=== PATIENT | male | born 1985 | race Caucasian/White ===

== ENCOUNTER 2016-09-14 18:39 | Emergency (ER) | payer SELFPAY ==
[2016-09-14 18:51] VITALS: BP 129/94
--- NOTE | 2016-09-14 19:12 | ER Document Report ---
HPI - HPI Patient complains to provider of: facial pressure had to leave work Onset: Other Onset/Duration: Sudden, Intermittent - Day Pain Level: 2 Context: 31-year-old normally healthy smoker male complaining of symptoms of facial pressure and jaw pain, that causes blurred vision. Occurred while he was driving to [place]. It then recurred after he left the emergency room in [place] for a scratch on his right hand that was treated with Keflex. He went back to the emergency room waited 4-1/2 hours and left because he was not seen. 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 He is wondering if the symptoms is because of the decayed top third molar on the right. No fever or facial swelling. No sinus congestion or postnasal drip. No recent upper respiratory infection. No sore throat or cough. No abdominal pain no nausea vomiting or diarrhea. No rash. Associated Symptoms: None Exacerbated by: Denies Relieved by: Denies Similar symptoms previously: Yes Recently seen / treated by doctor: No - ROS ROS below otherwise negative: Yes Systems Reviewed and Negative: Yes All other systems reviewed and negative - DERM Skin Color: Normal Past Medical History - General Information source: Patient - Social History Smoking Status: Current Every Day Smoker Frequency of alcohol use: None Drug Abuse: None Lives with: Family Family History: Reviewed & Not Pertinent - Medical History Medical History: Negative Renal/ Medical History: Denies: Hx Peritoneal Dialysis Surgical Hx: Negative Vertical Provider Document - CONSTITUTIONAL Agree With Documented VS: Yes Exam Limitations: No Limitations - INFECTION CONTROL TRAVEL OUTSIDE OF THE [place] IN LAST 30 DAYS: No - HEENT HEENT: Normocephalic, PERRLA. negative: Conjuctival Injection, Pharyngeal Erythema, Tympanic Membrane Red Notes: decayed without abscess top right 3rd molar. - NECK Neck: Supple. negative: Lymphadenopathy-Left, Lymphadenopathy-Right - RESPIRATORY Respiratory: Breath Sounds Normal, No Respiratory Distress O2 Sat by Pulse Oximetry: 96 - CARDIOVASCULAR Cardiovascular: Regular Rate, Regular Rhythm - GI/ABDOMEN Gastrointestinal: Abdomen Soft, Abdomen Non-Tender, No Organomegaly - MUSCULOSKELETAL/EXTREMETIES Musculoskeletal/Extremeties: CARMEN, FROM - NEURO Level of Consciousness: Awake, Alert, Appropriate Motor/Sensory: No Motor Deficit, No Sensory Deficit - DERM Integumentary: Warm, Dry, No Rash Course - Re-evaluation Re-evalutation: 09/14/16 19:32 20/20 right, 20 left - Vital Signs Vital signs: Temp Pulse Resp BP Pulse Ox 98.8 F 99 20 129/94 H 96 09/14/16 18:50 09/14/16 18:50 09/14/16 18:50 09/14/16 18:50 09/14/16 18:50 Discharge - Discharge Clinical Impression: Toothache, TMJ arthropathy Condition: Good Disposition: HOME, SELF-CARE Instructions: Toothache ([facility]), Dentist, Warm Packs ([facility]), Acetaminophen, Use of [id number] Ibuprofen ([facility]) Additional Instructions: warm compress see the dentist finish the pencillin to er if worse Please complete the patient satisfaction survey if you get one, and return it.. If you do not receive a survey, then you can go to the [facility] website, [email or web address] and place your comments about your very good care. Thank you very much. It was a pleasure being your medical provider today. Prescriptions: Ibuprofen [Motrin 800 mg Tablet] 800 mg PO Q8HP PRN #30 tablet PRN Reason: Penicillin V Potassium [Penicillin Vk 500 mg Tablet] 500 mg PO QID #40 tablet Forms: Return to Work
== END 2016-09-14 19:57 | disposition home or self-care (01) ==
LOC: ER 18:39
DX: M26.609 Unspecified temporomandibular joint disorder, unspecified side (principal); K08.89 Other specified disorders of teeth and supporting structures; R51 Headache; R68.84 Jaw pain; H53.8 Other visual disturbances; F17.200 Nicotine dependence, unspecified, uncomplicated
CPT/HCPCS: 99282

== ENCOUNTER 2016-11-27 18:47 | Emergency (ER) | payer SELFPAY ==
--- NOTE | 2016-11-27 20:15 | ER Document Report ---
ED Extremity Problem, Upper - General Chief Complaint: Arm Pain Stated Complaint: ARM PAIN Time Seen by Provider: 11/27/16 19:45 Notes: 31 year-old male to the emergency department complaining of muscle pains in the upper extremities. States that he started a new job over the last couple weeks. 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 Complaining of pain mostly in the right elbow, right biceps as well as right wrist and thumb area. Some pain in the muscles of the left arm as well. No other issues at this time. Denies any dark-colored urine. No prior history of rhabdomyolysis. Not on any medications. Not allergic to anything. Has not taken anything for the pain. TRAVEL OUTSIDE OF THE [place] IN LAST 30 DAYS: No - Related Data Allergies/Adverse Reactions: bupropion [From Wellbutrin] Adverse Reaction (Verified 09/14/16 18:49) Past Medical History - General Information source: Patient - Social History Smoking Status: Current Every Day Smoker Family History: Reviewed & Not Pertinent Renal/ Medical History: Denies: Hx Peritoneal Dialysis Past Surgical History: Reports: Hx Orthopedic Surgery - partial laminectomy spine with fusion Review of Systems - Review of Systems Constitutional: No symptoms reported EENT: No symptoms reported Cardiovascular: No symptoms reported Respiratory: No symptoms reported Gastrointestinal: No symptoms reported Genitourinary: No symptoms reported Male Genitourinary: No symptoms reported Musculoskeletal: No symptoms reported, See HPI Skin: No symptoms reported Hematologic/Lymphatic: No symptoms reported Neurological/Psychological: No symptoms reported. denies: Loss of power, Paralysis, Tingling Physical Exam - Vital signs Vitals: Temp Pulse Resp BP Pulse Ox 98.8 F 92 16 144/73 H 96 11/27/16 18:52 11/27/16 18:52 11/27/16 18:52 11/27/16 18:52 11/27/16 18:52 Interpretation: Normal - General General appearance: Appears well, Alert - HEENT Head: Normocephalic, Atraumatic Eyes: Normal Pupils: PERRL - Respiratory Respiratory status: No respiratory distress Chest status: Nontender Breath sounds: Normal Chest palpation: Normal - Cardiovascular Rhythm: Regular Heart sounds: Normal auscultation Murmur: No - Abdominal Inspection: Normal Distension: No distension Bowel sounds: Normal Tenderness: Nontender Organomegaly: No organomegaly - Back Back: Normal, Nontender - Extremities General upper extremity: Normal inspection, Nontender, Normal color, Normal ROM , Normal temperature General lower extremity: Normal inspection, Nontender, Normal color, Normal ROM , Normal temperature, Normal weight bearing. No: Jose's sign Arm: Other - Tenderness to palpation at the epicondyle of the right elbow. Tenderness to palpation of the right biceps. Tenderness to palpation of the left left biceps. Tenderness to palpation of the thenar eminence of the right hand. Forearm: Tender - Lateral epicondyle Wrist: Normal Hand: Normal - Neurological Neuro grossly intact: Yes Cognition: Normal Orientation: AAOx4 [place] Coma Scale Eye Opening: Spontaneous [place] Coma Scale Verbal: Oriented Gracie Coma Scale Motor: Obeys Commands Gracie Coma Scale Total: 15 Speech: Normal Motor strength normal: LUE, RUE, LLE, RLE Sensory: Normal - Psychological Associated symptoms: Normal affect, Normal mood - Skin Skin Temperature: Warm Skin Moisture: Dry Skin Color: Normal Course - Re-evaluation Re-evalutation: 11/27/16 20:13 Well-appearing. No acute distress. 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 Will need to ice the elbow and the muscles. To keep a close eye on his urine output and color of urine to assure that he is not developing rhabdomyolysis. Advised him to take anti-inflammatories, ice the area, rest the muscles and return if symptoms get worse. - Vital Signs Vital signs: Temp Pulse Resp BP Pulse Ox 98.8 F 92 16 144/73 H 96 11/27/16 18:52 11/27/16 18:52 11/27/16 18:52 11/27/16 18:52 11/27/16 18:52 Discharge - Discharge Clinical Impression: Myalgia Lateral epicondylitis (tennis elbow) Qualifiers: Laterality: right Qualified Code(s): M77.11 - Lateral epicondylitis, right elbow Condition: Good Disposition: HOME, SELF-CARE Additional Instructions: Muscle Strain It is very important that you limit excess activity at this time. Ice the areas that hurt. Rest. Anti-inflammatory medication if needed. No heavy lifting or high impact activity of the upper extremities for a minimum of 3 days You have strained a muscle -- torn the fibers within the muscle. This often occurs with strenuous exertion, or during an injury that suddenly stretches the muscle. The seriousness of a strain varies. Some strains heal within days, others cause problems for months. X-rays cannot show a muscle strain. X-rays are taken only if symptoms suggest that a fracture could be present. The usual treatment of a muscle strain is rest and ice packs. Sometimes, a sling, splint, or crutches may be necessary to rest the muscle. The muscle can be used again once pain subsides. Severe strains require a special exercise and stretching program to prevent permanent stiffness and disability. Your doctor will advise you if this will be necessary. Call the doctor immediately if pain or swelling becomes severe, or if numbness or discoloration develop.Tennis Elbow (Lateral Epicondylitis) You have lateral epicondylitis of the elbow, also called tennis elbow. This is a tendonitis at the point where the top-side forearm muscles attach to the outer side of the elbow. This is caused by repeated minor trauma or overuse , often during racquet sports or repetitive manual labor. In tennis, a faulty backhand stroke is usually the cause. Treat the tendonitis with antiinflammatory pain medication such as ibuprofen. Apply warmth to the area for 15 to 20 minutes, about 4 times a day. A wrap or "tennis elbow brace" that compresses the area may help. Steroid injections or surgery are occasionally required for severe cases that don't heal. Avoid or limit any activity that aggravates the pain. Stop racquet sports and golf for 4 to 6 weeks. Tennis players should make sure that they have a proper backhand after the injury heals. Return if you develop worsening pain, loss of mobility in the elbow, severe swelling, or numbness or weakness in the arm. Prescriptions: Ibuprofen 800 mg PO TID #20 tablet Forms: Return to Work, Restricted Release
[2016-11-27 20:31] VITALS: BP 136/75
== END 2016-11-27 20:30 | disposition home or self-care (01) ==
LOC: ER 18:47
DX: M77.11 Lateral epicondylitis, right elbow (principal); M79.1 Myalgia; M25.521 Pain in right elbow; M25.531 Pain in right wrist; F17.200 Nicotine dependence, unspecified, uncomplicated
CPT/HCPCS: 99283

== ENCOUNTER 2017-03-27 01:44 | Emergency (ER) | payer SELFPAY ==
[2017-03-27] MEDS ORDERED: PROCHLORPERAZINE EDISYLATE INJ 10 MG/2 ML VIAL IM ONE (08:07)
[2017-03-27] MEDS ORDERED: KETOROLAC TROMETHAMINE 60 MG/2 ML SDV IM ONE (08:07)
[2017-03-27] MEDS ORDERED: ONDANSETRON 4 MG TAB.RAPDIS PO ONE (08:07)
--- NOTE | 2017-03-27 08:09 | ER Document Report ---
ED General - General Chief Complaint: Flu Symptoms Stated Complaint: BODY ACHES Time Seen by Provider: 03/27/17 07:26 TRAVEL OUTSIDE OF THE [place] IN LAST 30 DAYS: No - HPI Patient complains to provider of: Fever chills muscle aches flulike symptoms Notes: Patient coming in for the above-stated symptoms that started on Friday. Patient states pain and muscle aches became severe is therefore came to the ER for further evaluation. Patient denies any recent travel denies any antibiotics. Patient denies smoking denies any alcohol or drug abuse. Patient sitting comfortably from me turn the lights on but she never said stating that he does have a headache. - Related Data Allergies/Adverse Reactions: bupropion [From Wellbutrin] Adverse Reaction (Verified 09/14/16 18:49) Past Medical History - Social History Smoking Status: Current Every Day Smoker Chew tobacco use (# tins/day): No Frequency of alcohol use: Occasional Drug Abuse: None Family History: Reviewed & Not Pertinent Patient has suicidal ideation: No Patient has homicidal ideation: No Renal/ Medical History: Denies: Hx Peritoneal Dialysis Past Surgical History: Reports: Hx Orthopedic Surgery - partial laminectomy spine with fusion Review of Systems - Review of Systems Constitutional: Other - Fevers chills myalgias headache EENT: No symptoms reported Cardiovascular: No symptoms reported Respiratory: No symptoms reported Gastrointestinal: No symptoms reported Genitourinary: No symptoms reported Male Genitourinary: No symptoms reported Musculoskeletal: No symptoms reported Skin: No symptoms reported Hematologic/Lymphatic: No symptoms reported Neurological/Psychological: No symptoms reported -: Yes All other systems reviewed and negative Physical Exam - Vital signs Vitals: Temp Pulse Resp BP Pulse Ox 99.7 F 89 18 134/82 H 95 03/27/17 02:05 03/27/17 02:05 03/27/17 02:05 03/27/17 02:05 03/27/17 02:05 Interpretation: Normal - General General appearance: Appears well, Alert - HEENT Head: Normocephalic, Atraumatic Eyes: Normal Conjunctiva: Normal Cornea: Normal Extraocular movements intact: Yes Eyelashes: Normal Pupils: PERRL Neck: Normal - Respiratory Respiratory status: No respiratory distress Chest status: Nontender Breath sounds: Normal Chest palpation: Normal - Cardiovascular Rhythm: Regular Heart sounds: Normal auscultation Murmur: No - Abdominal Inspection: Normal Distension: No distension Bowel sounds: Normal Tenderness: Nontender Organomegaly: No organomegaly - Back Back: Normal, Nontender - Extremities General upper extremity: Normal inspection, Nontender, Normal color, Normal ROM , Normal temperature General lower extremity: Normal inspection, Nontender, Normal color, Normal ROM , Normal temperature, Normal weight bearing. No: Jose's sign - Neurological Neuro grossly intact: Yes Cognition: Normal Orientation: AAOx4 [place] Coma Scale Eye Opening: Spontaneous [place] Coma Scale Verbal: Oriented Gracie Coma Scale Motor: Obeys Commands [place] Coma Scale Total: 15 Speech: Normal Motor strength normal: LUE, RUE, LLE, RLE Sensory: Normal - Psychological Associated symptoms: Normal affect, Normal mood - Skin Skin Temperature: Warm Skin Moisture: Dry Skin Color: Normal Course - Re-evaluation Re-evalutation: 03/27/17 15:05 Explained to the patient after evaluation and more likely his symptoms are related to influenza virus or another virus. Patient states that his symptoms have been ongoing for many months. Patient states he has multiple pain issues. I explained to patient that this time since his symptoms now started on Friday and with his history of symptoms I do believe the patient more likely has underlying fluid. Patient will be given IV medications for his headache otherwise looks well-hydrated no neurological findings will discharge home - Vital Signs Vital signs: Temp Pulse Resp BP Pulse Ox 98.1 F 85 18 130/80 H 100 03/27/17 09:21 03/27/17 09:21 03/27/17 09:21 03/27/17 09:21 03/27/17 09:21 Discharge - Discharge Clinical Impression: Flu-like symptoms Headache Qualifiers: Headache type: unspecified Headache chronicity pattern: unspecified pattern Intractability: not intractable Qualified Code(s): R51 - Headache Condition: Good Disposition: HOME, SELF-CARE Instructions: Family Physicians / Practices, Headache ([facility]), Influenza ([facility]) [id number] Additional Instructions: Your examination today is consistent with an influenza infection. With her symptoms ongoing since Friday you are not a candidate for Tamiflu. I would recommend taking Tylenol Motrin for your symptoms he may also take the Compazine Zofran for your headaches and your nausea. Return to ER symptoms worsen I would recommend following up with primary care physician is listed. Prescriptions: Ondansetron [Zofran Odt] 4 mg PO Q6 PRN #30 tab.rapdis PRN Reason: For Nausea/Vomiting Prochlorperazine Maleate [Compazine] 5 mg PO Q6 #30 tablet Forms: Return to Work
[2017-03-27 09:22] VITALS: BP 130/80
== END 2017-03-27 09:22 | disposition home or self-care (01) ==
LOC: ER 01:44
DX: R51 Headache (principal); R50.9 Fever, unspecified; M79.1 Myalgia; F17.200 Nicotine dependence, unspecified, uncomplicated
CPT/HCPCS: 99283; 96372; 96374; J1885; S0119; J0780

== ENCOUNTER 2018-01-21 01:17 | Emergency (ER) | payer MEDICAID ==
[2018-01-21] MEDS ORDERED: IBUPROFEN 800 MG TABLET PO ONE (02:01)
--- NOTE | 2018-01-21 03:04 | RADIOLOGY REPORT (SQ) ---
CLINICAL HISTORY: dropped shelf on toe COMPARISON: None. TECHNIQUE: XR TOES 2 OR MORE VIEWS 01/21/2018 12:00 AM [facility] CONSULTANT FINDINGS: There is no fracture. Joint spaces are preserved. There is soft tissue swelling of the distal first digit. IMPRESSION: No acute osseous findings.
--- NOTE | 2018-01-21 03:25 | ER Document Report ---
HPI - HPI Patient complains to provider of: right toe injury Time Seen by Provider: 01/21/18 01:36 Pain Level: 5 Context: Patient is a 32-year-old male presenting to the emergency department after a piece of water fell off the back of his pickup truck landing on his right toe. Patient states he had flip-flops on at the time. Patient states he noted immediate pain and presents to the emergency room. There appears to be no break in the patient's skin although patient does state he had his last tetanus within this year. Past medical history: None Medications: None Allergies: None Past Medical History - General Information source: Patient - Social History Smoking Status: Current Every Day Smoker Chew tobacco use (# tins/day): No Frequency of alcohol use: None Lives with: Family Family History: Reviewed & Not Pertinent Patient has suicidal ideation: No Patient has homicidal ideation: No Renal/ Medical History: Denies: Hx Peritoneal Dialysis Past Surgical History: Reports: Hx Orthopedic Surgery - partial laminectomy spine with fusion Vertical Provider Document - CONSTITUTIONAL Agree With Documented VS: Yes Notes: GENERAL: Alert, interacts well. No acute distress. HEAD: Normocephalic, atraumatic. EYES: Pupils equal, round, and reactive to light. Extraocular movements intact. ENT: Oral mucosa moist, tongue midline. NECK: Full range of motion. Supple. Trachea midline. LUNGS: Clear to auscultation bilaterally, no wheezes, rales, or rhonchi. No respiratory distress. HEART: Regular rate and rhythm. No murmur ABDOMEN: Soft, non-tender. Non-distended. Bowel sounds present in all 4 quadrants. EXTREMITIES: Moves all 4 extremities spontaneously. normal radial and dorsalis pedis pulses bilaterally. Right distal great toe erythematous and swollen. Appears to be a 75% subungual hematoma noted to the right great toenail. Distal capillary refill less than 2 seconds right great toe BACK: no cervical, thoracic, lumbar midline tenderness. No saddle anesthesia, normal distal neurovascular exam. NEUROLOGICAL: Alert and oriented x3. Normal speech. cranial nerves II through XII grossly intact PSYCH: Normal affect, normal mood. SKIN: Warm, dry, normal turgor. - INFECTION CONTROL TRAVEL OUTSIDE OF THE [place] IN LAST 30 DAYS: No Course - Re-evaluation Re-evalutation: 01/21/18 03:23 Patient's x-rays revealed no signs of fracture. I did do trepanation to the subungual hematoma on the right great toe. Patient tolerated the procedure well with no complications. Discussed follow-up with primary care and return precautions. - Vital Signs Vital signs: Temp Pulse Resp BP Pulse Ox 98 F 88 16 142/84 H 99 01/21/18 01:18 12 01:18 01/21/18 01:18 01/21/18 01:18 01/21/18 01:18 Discharge - Discharge Clinical Impression: Subungual hematoma Toe injury Qualifiers: Encounter type: initial encounter Laterality: right Qualified Code(s): S99.921A - Unspecified injury of right foot, initial encounter Condition: Stable Disposition: HOME, SELF-CARE Instructions: Subungual Hematoma ([facility]), Crush Injury ([facility]) Additional Instructions: As we discussed you have been seen and treated in the emergency department for a toe injury. You should follow-up with your primary care in the next 24-48 hours. Please keep the site dry and clean for the next 24 hours. After that you can wash it as normal but do not submerge to injury. Please return to the emergency room for any signs of infection or other concerns.
[2018-01-21 03:33] VITALS: BP 136/84
== END 2018-01-21 03:33 | disposition home or self-care (01) ==
LOC: ER 01:17
DX: S90.211A Contusion of right great toe with damage to nail, initial encounter (principal); W20.8XXA Other cause of strike by thrown, projected or falling object, initial encounter; F17.200 Nicotine dependence, unspecified, uncomplicated
CPT/HCPCS: 99283; 73660; 11740; J3490

== ENCOUNTER 2018-03-16 14:26 | Emergency (ER) | payer MEDICAID ==
[2018-03-16] MEDS ORDERED: PREDNISONE 20 MG TABLET PO ONE (15:07)
[2018-03-16] MEDS ORDERED: IPRATROPIUM/ALBUTEROL 0.5-2.5 MG/3 ML AMPUL NEB ONE (15:07)
[2018-03-16] MEDS ORDERED: ACETAMINOPHEN 325 MG TABLET PO ONE (15:08)
--- NOTE | 2018-03-16 15:09 | ER Document Report ---
HPI - HPI Time Seen by Provider: 03/16/18 15:01 Onset: Last week Onset/Duration: Persistent Quality of pain: Achy Pain Level: 3 Context: Patient presents with sore throat and productive cough for the past week. Patient complains of chest discomfort when coughing. Patient reports fever off and on. Associated Symptoms: Body/muscle aches, Chest pain, Productive cough, Fever, Rhinnorhea. denies: Earache Exacerbated by: Denies, Coughing Relieved by: Remaining still Similar symptoms previously: Yes Recently seen / treated by doctor: No - ROS ROS below otherwise negative: Yes Systems Reviewed and Negative: Yes All other systems reviewed and negative - CONSTITUTIONAL Constitutional: REPORTS: Fever - EENT EENT: REPORTS: Nasal Drainage-Clear, Congestion - CARDIOVASCULAR Cardiovascular: REPORTS: Chest pain - RESPIRATORY Respiratory: REPORTS: Coughing. 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 IN LAST 30 DAYS: No - HEENT HEENT: Atraumatic, Normocephalic, Pharyngeal Tenderness, Pharyngeal Erythema. negative: Pharyngeal Exudate, Tympanic Membrane Red, Tympanic Membrane Bulging - NECK Neck: Normal Inspection, Supple. negative: Lymphadenopathy-Left, Lymphadenopathy-Right - RESPIRATORY Respiratory: No Respiratory Distress, Rhonchi, Wheezing - CARDIOVASCULAR Cardiovascular: Regular Rate, Regular Rhythm, No Murmur. negative: Tachycardia - GI/ABDOMEN Gastrointestinal: Abdomen Soft - BACK Back: Normal Inspection - MUSCULOSKELETAL/EXTREMETIES Musculoskeletal/Extremeties: MAEW, FROM, Non-Tender - NEURO Level of Consciousness: Awake, Alert, Appropriate Motor/Sensory: No Motor Deficit - DERM Integumentary: Warm, Dry, No Rash Course - Re-evaluation Re-evalutation: 03/16/18 16:51 Respirations even unlabored, patient nontoxic in appearance. Patient does still continue with scattered wheezing although has good air movement bilaterally. Smoking cessation discussed. 03/16/18 16:55 Patient ambulated in hallway with pulse oximeter, oxygen saturation 97%, heart rate 101. - Vital Signs Vital signs: Temp Pulse Resp BP Pulse Ox 98.4 F 88 20 132/79 H 91 L 03/16/18 14:32 03/16/18 14:32 03/16/18 14:32 03/16/18 14:32 03/16/18 14:32 - Laboratory Laboratory results interpreted by me: 03/16/18 16:51 Labs- Entire Visit 03/16/18 15:12 Group A Strep Rapid NEGATIVE - Diagnostic Test Radiology reviewed: Reports reviewed Discharge - Discharge Clinical Impression: Wheezing Upper respiratory infection Qualifiers: URI type: unspecified URI Qualified Code(s): J06.9 - Acute upper respiratory infection, unspecified Condition: Stable Disposition: HOME, SELF-CARE Additional Instructions: Return immediately for any new or worsening symptoms Followup with your primary care provider, call tomorrow to make a followup appointment UPPER RESPIRATORY ILLNESS: You have a viral infection of the respiratory passages -- a "cold." This common infection causes nasal congestion, drainage, and often sore throat and cough. It is highly contagious. The disease usually lasts about 10 to 14 days. There is no "cure" for the viral infection -- it must run its course. If there is a complication, such as bacterial infection in the nose, sinuses, middle ear, or bronchial tubes, antibiotics may be required. The antibiotics won't affect the virus. Drink plenty of fluids. A humidifier may help. An expectorant medication or decongestant may make you more comfortable. Use acetaminophen or ibuprofen for fever or aches. See the doctor if fever persists over two days, if there is any significant worsening of your symptoms, or if you simply fail to improve as expected. BRONCHOSPASM: You have tightness in the bronchial tubes, called bronchospasm. This often occurs with bronchial infections. Allergies, inhaled chemicals, and polluted or cold air can also provoke bronchospasm. It's more likely in patients with asthma in the family. Emergency treatment of bronchospasm may include adrenaline shots or bronchodilator aerosol. You may feel lightheaded and have a rapid pulse for an hour or two. Rest and get plenty of fluids. At home, we'll treat you with a bronchodilator inhaler. Antibiotics and corticosteroids may be required for some patients. Until you recover, avoid chemical fumes, dusts, pollens, and exercising in very cold or dry air. If you smoke, stop now!! If you develop a fever, increased wheezing, chest pain, or severe shortness of breath, you should contact the doctor immediately. INHALED BRONCHODILATORS: You have received a treatment of and/or prescription for an inhaled bronchodilator -- a medication which stimulates the airways in the lung to dilate. This improves the flow of air in asthma, bronchitis, and emphysema. These medicines have some similarity to adrenaline, and can cause similar side effects: shakiness, racing heart, and a sense of nervousness. These side effects decrease with time. Contact your doctor if these side effects are severe. Do not over-use the medicine. Too-frequent use of the inhaler may make it ineffective. Call your doctor if the inhaler is not controlling your symptoms at the prescribed doses. STEROID MEDICATION: You have been given an injection of or oral medicine of the cortisone/steroid class. This medication is used to control inflammation or allergy. Zane t is usually only given for a short period of time, until the acute process subsides. There are usually no side effects from short-term use of cortisone-like medications. Some persons feel an increased sense of well-being and are not sleepy at bedtime. Long-term use of cortisone medications is best avoided, unless required for a severe condition. If your condition does not remit, or relapses after the course of corticosteroid medication, you should consult your physician. USE OF ACETAMINOPHEN (Tylenol): Acetaminophen may be taken for pain relief or fever control. It's much safer than aspirin, offering a wider range of "safe" dosages. It is safe during . Some brand names are Tylenol, Panadol, Datril, Anacin 3, Tempra, and Liquiprin. Acetaminophen can be repeated every four hours. The following are maximum recommended dosages: >89 pounds or adults 650 mg to 900 mg Acetaminophen can be repeated every four hours. Maximum dose not to exceed 4000 mg a day. SMOKING: If you smoke, you should stop smoking. The tar and chemicals in cigarette smoke are harmful. Smoking has been shown to cause: emphysema chronic bronchitis lung cancer mouth and throat cancer stomach and pancreas cancer premature aging defects In addition, smoking increases ear and lung infections in children of smokers. FOLLOW-UP CARE: If you have been referred to a physician for follow-up care, call the physicians office for an appointment as you were instructed or within the next two days. If you experience worsening or a significant change in your symptoms, notify the physician immediately or return to the Emergency Department at any time for re-evaluation. Prescriptions: Benzonatate [Tessalon Perle 100 mg Capsule] 100 mg PO Q8HP PRN #20 cap PRN Reason: Prednisone [Deltasone 20 mg Tablet] 3 tab PO DAILY 4 Days tablet Forms: Smoking Cessation Education, Return to Work Referrals: [facility] [Provider Group] - Follow up as needed [facility] [Provider Group] - Follow up as needed
--- NOTE | 2018-03-16 15:26 | RADIOLOGY REPORT (SQ) ---
EXAM DESCRIPTION: CHEST 2 VIEWS COMPLETED DATE/TIME: 03/16/2018 3:19 pm REASON FOR STUDY: cough COMPARISON: None. TECHNIQUE: Frontal and lateral radiographic views of the chest acquired. NUMBER OF VIEWS: Two view. LIMITATIONS: None. FINDINGS: LUNGS AND PLEURA: No opacities, masses or pneumothorax. No pleural effusion. MEDIASTINUM AND HILAR STRUCTURES: No masses or contour abnormalities. HEART AND VASCULAR STRUCTURES: Heart normal size. No evidence for failure. BONES: No acute findings. HARDWARE: None in the chest. OTHER: No other significant finding. IMPRESSION: NO SIGNIFICANT RADIOGRAPHIC FINDING IN THE CHEST. TECHNICAL DOCUMENTATION: JOB ID: [id number] [employer]- All Rights Reserved Reading location - IP/workstation name: [email or web address]
[2018-03-16] MEDS: ALBUTEROL SULFATE 0.083% NEB 2.5 MG/3 ML AMPUL NEB SCH ×2 (15:27→15:29)
[2018-03-16] MEDS ORDERED: ALBUTEROL SULFATE HFA (90 MCG/PUFF) 8 GM MDI (1 MDI/ER DISP) IH ONE (16:56)
[2018-03-16 17:36] VITALS: BP 121/71
== END 2018-03-16 17:37 | disposition home or self-care (01) ==
LOC: ER 14:26
DX: J06.9 Acute upper respiratory infection, unspecified (principal); R06.2 Wheezing; M79.10 Myalgia, unspecified site; F17.200 Nicotine dependence, unspecified, uncomplicated; Z98.1 Arthrodesis status
CPT/HCPCS: 94640 ×2; 99283; 87070; 87880; 71046; J7512; J3490; J7620

== ENCOUNTER 2018-03-19 16:23 | Emergency (ER) | payer MEDICAID ==
[2018-03-19 16:30] VITALS: BP 138/72
[2018-03-19] MEDS ORDERED: IPRATROPIUM/ALBUTEROL 0.5-2.5 MG/3 ML AMPUL NEB ONE ×2 (16:41→17:43)
[2018-03-19] MEDS ORDERED: DEXAMETHASONE SOD PHOS INJ 10 MG/1 ML VIAL IM ONE (16:41)
--- NOTE | 2018-03-19 16:44 | ER Document Report ---
ED General - General Chief Complaint: Cough Stated Complaint: COUGH Time Seen by Provider: 03/19/18 16:33 Primary Care Provider: MADDIE ESPOSITO MD [ACTIVE STAFF] - Follow up as needed TRAVEL OUTSIDE OF THE [place] IN LAST 30 DAYS: No - HPI Notes: 82-year-old male presents the ED for reevaluation of worsening cough with wheezing, patient was seen in the ED times 2 days ago, chest x-ray was negative and was discharged home with a Ventolin inhaler and told he had an upper respiratory infection. Reports coughing and wheezing has become worse. Has not tried his Ventolin inhaler. Drinking and eating without issues. She reports he is a non-smoker. denies fevers, chills, chest pain,palpitations, shortness of breath, dyspnea, nausea, vomiting, diarrhea, abdominal pain, hematuria,blurred vision, double vision, loss of vision, speech changes, LH, dizziness, syncope, headaches, wheezing, ST, URI, neck pain, weakness, bowel or bladder dysfunction, saddle anesthesia, numbness or tingling in bilateral upper or lower extremities equally, muscle paralysis, weakness in bilateral upper or lower extremities equally or rash. - Related Data Allergies/Adverse Reactions: bupropion [From Wellbutrin] Adverse Reaction (Verified 03/16/18 14:28) Past Medical History - General Information source: Patient - Social History Smoking Status: Current Every Day Smoker Family History: Reviewed & Not Pertinent Patient has suicidal ideation: No Patient has homicidal ideation: No Renal/ Medical History: Denies: Hx Peritoneal Dialysis Past Surgical History: Reports: Hx Orthopedic Surgery - partial laminectomy spine with fusion Review of Systems - Review of Systems Constitutional: No symptoms reported EENT: No symptoms reported Cardiovascular: No symptoms reported Respiratory: See HPI Gastrointestinal: No symptoms reported Genitourinary: No symptoms reported Male Genitourinary: No symptoms reported Musculoskeletal: No symptoms reported Skin: No symptoms reported Hematologic/Lymphatic: No symptoms reported Neurological/Psychological: No symptoms reported Physical Exam - Vital signs Vitals: Temp Pulse Resp BP Pulse Ox 98.3 F 71 16 138/72 H 94 03/19/18 16:28 03/19/18 16:28 03/19/18 16:28 03/19/18 16:28 03/19/18 16:28 - Notes Notes: PHYSICAL EXAMINATION: GENERAL: Well-appearing, well-nourished and in no acute distress. HEAD: Atraumatic, normocephalic. EYES: Pupils equal round and reactive to light, extraocular movements intact, sclera anicteric, conjunctiva are normal. ENT: Nares patent, oropharynx clear without exudates. Moist mucous membranes. NECK: Normal range of motion, supple without lymphadenopathy LUNGS: Wheezing in bilateral upper lobes, 2 breathing treatments given, on repeat evaluation auscultation of lungs resolved wheezing, breath sounds clear to auscultation. breath sounds clear to auscultation bilaterally and equal. No wheezes rales or rhonchi. HEART: Regular rate and rhythm without murmurs ABDOMEN: Soft, nontender, nondistended abdomen. No guarding, no rebound. No masses appreciated. Musculoskeletal: Normal range of motion, no pitting or edema. No cyanosis. NEUROLOGICAL: Cranial nerves grossly intact. Normal speech, normal gait. Normal sensory, motor exams PSYCH: Normal mood, normal affect. SKIN: Warm, Dry, normal turgor, no rashes or lesions noted. Course - Re-evaluation Re-evalutation: 03/19/18 19:14 32-year-old male presents for reevaluation of cough is become worse, afebrile, initial pulse ox 94% , denies history of asthma, reports he does smoke cigarettes. 10 mg Decadron given IM as well as 2 DuoNeb's, reevaluation pulse ox with oxygenation at 97%. on RA Chest x-ray negative for acute findings per radiology. On reevaluation his wheezing has resolved, breath sounds clear to auscultation. Discussed with patient he does have a bronchitis so he does not show pneumonia on chest x-ray we will start him on a Z-Kvng, oral steroids and Tessalon Perles. Patient has a bronchitis, advised to carry Ventolin inhaler and person after performing a Medical Screening Examination, I estimate there is LOW risk for ACUTE CORONARY SYNDROME, PULMONARY EMBOLI, RESPIRATORY FAILURE, SEPSIS OR MENINGITIS, thus I consider the discharge disposition reasonable. I have reevaluated this patient multiple times and no significant life threatening changes are noted. The patient and I have discussed the diagnosis and risks, and we agree with discharging home with close follow-up. We also discussed returning to the Emergency Department immediately if new or worsening symptoms occur. We have discussed the symptoms which are most concerning (e.g., changing or worsening pain, trouble swallowing or breathing, neck stiffness, fever) that necessitate immediate return. - Vital Signs Vital signs: Temp Pulse Resp BP Pulse Ox 98.3 F 75 20 138/72 H 97 03/19/18 16:28 03/19/18 17:24 03/19/18 17:24 03/19/18 16:28 03/19/18 17:24 Discharge - Discharge Clinical Impression: Cough, Wheezing Condition: Stable Disposition: HOME, SELF-CARE Instructions: Bronchitis With Bronchospasm (Wheezing) ([facility]), Bronchitis ([facility]) Additional Instructions: Cough Suppressant/Expectorant Medication You are to use a cough medication as needed for relief of symptoms. This medicine is a combination of an expectorant (to make the mucous thinner and more easily "coughed up") and a cough suppressant (to reduce the frequency of coughing). The cough-suppressant medicine is related to narcotics. You may experience mild nausea and sleepiness. Some patients who are very sensitive to narcotics may have stomach pain from this medicine. Taking the medicine with food reduces these side effects. Do not drive or work with machinery until you know how this medicine affects you. The expectorant should have no side effects. Iodine-containing expectorants (such as organidin) should not be taken by persons with active thyroid disease unless approved by your doctor. Call the doctor if you develop shortness of breath, hives, rash, itching, lightheadedness, or severe nausea and vomiting. Return immediately for any new or worsening symptoms. Follow up with primary care provider, call tomorrow to make followup appointment. Prescriptions: Benzonatate [Tessalon Perles 100 mg Capsule] 100 mg PO Q8HP PRN #20 capsule PRN Reason: Azithromycin [Zithromax] 250 mg PO DAILY 5 Days #6 tablet Prednisone [Deltasone 20 mg Tablet] 3 tab PO DAILY 5 Days #15 tablet Forms: Return to Work Referrals: MADDIE ESPOSITO MD [ACTIVE STAFF] - Follow up as needed
--- NOTE | 2018-03-19 17:03 | RADIOLOGY REPORT (SQ) ---
EXAM DESCRIPTION: CHEST 2 VIEWS COMPLETED DATE/TIME: 03/19/2018 4:56 pm REASON FOR STUDY: wheezing, pulse ox 94, productive cough COMPARISON: 03/16/2018. EXAM PARAMETERS: NUMBER OF VIEWS: two views TECHNIQUE: Digital Frontal and Lateral radiographic views of the chest acquired. RADIATION DOSE: NA LIMITATIONS: none FINDINGS: LUNGS AND PLEURA: No opacities, masses or pneumothorax. No pleural effusion. MEDIASTINUM AND HILAR STRUCTURES: No masses or contour abnormalities. HEART AND VASCULAR STRUCTURES: Heart normal size. No evidence for failure. BONES: No acute findings. HARDWARE: None in the chest. OTHER: No other significant finding. IMPRESSION: NO ACUTE RADIOGRAPHIC FINDING IN THE CHEST. TECHNICAL DOCUMENTATION: JOB ID: [id number] [employer]- All Rights Reserved Reading location - IP/workstation name: [email or web address]
== END 2018-03-19 18:02 | disposition home or self-care (01) ==
LOC: ER 16:23
DX: J40 Bronchitis, not specified as acute or chronic (principal); J06.9 Acute upper respiratory infection, unspecified; R05 Cough; R06.2 Wheezing; T48.6X6A Underdosing of antiasthmatics, initial encounter; Z91.14 Patient's other noncompliance with medication regimen; F17.210 Nicotine dependence, cigarettes, uncomplicated
CPT/HCPCS: 94640 ×2; 99283; 96372; 71046; J1100; J7620

== ENCOUNTER 2018-04-03 13:57 | Emergency (ER) | payer MEDICAID ==
[2018-04-03 14:10] VITALS: BP 156/90
[2018-04-03] MEDS ORDERED: OXYCODONE HCL IR 5 MG TABLET PO ONE (15:52)
[2018-04-03] MEDS ORDERED: CYCLOBENZAPRINE HCL 10 MG TABLET PO ONE (15:52)
--- NOTE | 2018-04-03 15:58 | ER Document Report ---
ED Medical Screen (RME) - General Chief Complaint: Shoulder Pain Stated Complaint: SHOULDER PAIN,UPPER BACK PAIN Time Seen by Provider: 04/03/18 15:38 Primary Care Provider: DEE PINA MD [ACTIVE STAFF] - Follow up as needed (This is the number the pain clinic: Call for the next available appointment.) GARY PATTERSON MD [ACTIVE STAFF] - Follow up as needed (This is a number for the primary care doctor to have your blood pressure rechecked.) Mode of Arrival: Ambulatory Information source: Patient Notes: This is a 32-year-old man with a history of spinal in the past and a lumbar spinal fusion in [place] in 2014. Patient states he has a long history of back issues and presents to the emergency room with lower neck and bilateral shoulder pain with movement. He states he gets a lot of spasm. 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 He states the only thing he gets relief from his massaging. He denies any focal motor weakness. He denies any fever or chills or recent illnesses. He denies any IV drug use. Is currently on no medicines. TRAVEL OUTSIDE OF THE [place] IN LAST 30 DAYS: No - HPI Onset: Last week Onset/Duration: Gradual Quality of pain: Dull Severity: Moderate Pain Level: 3 Associated Symptoms: denies: Chest pain, Fever, Shortness of breath Exacerbated by: Movement Relieved by: Remaining still Similar symptoms previously: Yes Recently seen / treated by doctor: Yes - Related Data Smoking: Cigarettes Frequency of alcohol use: None Drug Abuse: None Allergies/Adverse Reactions: bupropion [From Wellbutrin] Adverse Reaction (Verified 03/16/18 14:28) Past Medical History - General Information source: Patient - Social History Cigarette use (# per day): Yes - 1 pack/day Chew tobacco use (# tins/day): No Frequency of alcohol use: None Drug Abuse: None Lives with: Family Family history: None - Past Medical History Cardiac Medical History: Reports: None Pulmonary Medical History: Reports: None EENT Medical History: Reports: None Neurological Medical History: Reports: None Endocrine Medical History: Reports: None Renal/ Medical History: Reports: None. Denies: Hx Peritoneal Dialysis Malignancy Medical History: Reports None GI Medical History: Reports: None Musculoskeltal Medical History: Reports Other - Long history of back problems Skin Medical History: Reports None Psychiatric Medical History: Reports: None Traumatic Medical History: Reports: None Infectious Medical History: Reports: None Past Surgical History: Reports: Hx Orthopedic Surgery - partial laminectomy spine with fusion Review of Systems - Review of Systems Constitutional: denies: Chills, Fever EENT: No symptoms reported Cardiovascular: No symptoms reported. denies: Chest pain, Palpitations, Heart racing Respiratory: No symptoms reported. denies: Hemoptysis, Short of breath, Wheezing Gastrointestinal: denies: Abdomen distended, Abdominal pain, Diarrhea Genitourinary: No symptoms reported Male Genitourinary: No symptoms reported Musculoskeletal: See HPI Skin: No symptoms reported. denies: Rash Hematologic/Lymphatic: No symptoms reported Neurological/Psychological: No symptoms reported. denies: Weakness, Gait changes, Paralysis, Headaches, Numbness Physical Exam - Vital signs Vitals: Temp Pulse Resp BP Pulse Ox 98.8 F 100 18 156/90 H 95 04/03/18 14:08 04/03/18 14:08 04/03/18 14:08 04/03/18 14:08 04/03/18 14:08 Notes: Physical exam: GENERAL: Patient is alert and oriented x3, no acute distress HEAD: Atraumatic, normocephalic. EYES: Pupils equal round and reactive to light, extraocular movements intact, sclera anicteric, conjunctiva are normal. ENT: Moist mucous membranes. NECK: Normal range of motion, supple without obvious mass LUNGS: Breath sounds clear to auscultation bilaterally and equal. No wheezes rales or rhonchi. HEART: Regular rate and rhythm without murmurs, rubs or gallops. ABDOMEN: Soft, normoactive bowel sounds. No tenderness to palpation. No guarding, no rebound. No masses appreciated. Back: Patient does have paraspinal tenderness in the upper thoracic and lower cervical spine area. Is got spasm in the trapezius bilaterally. There is no skin changes. EXTREMITIES: Normal range of motion, no pitting or edema. No clubbing or cyanosis. NEUROLOGICAL: Cranial nerves II through XII grossly intact. Normal speech, moving all extremities. Upper extremity strength is good: 5-5 and symmetric. Lower extremity strength is good. Gait is normal. PSYCH: Normal mood, normal affect. SKIN: Warm, Dry, normal turgor, no rashes or lesions noted. Course - Re-evaluation Re-evalutation: 04/03/18 16:03 Had a long discussion with the patient. I think he should follow-up in the pain clinic. 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 I did mention to him that his blood pressure was elevated and I recommend he follow-up with a primary care doctor as well. - Vital Signs Vital signs: Temp Pulse Resp BP Pulse Ox 98.8 F 100 18 156/90 H 95 04/03/18 14:08 04/03/18 14:08 04/03/18 14:08 04/03/18 14:08 04/03/18 14:08 Doctor's Discharge - Discharge Clinical Impression: Upper back pain and spasm, With radiculopathy Condition: Stable Disposition: HOME, SELF-CARE Instructions: Radiculopathy ([facility], 1928–1983) Additional Instructions: As we discussed, take the pain medicine and Flexeril (muscle relaxer) as needed. Do not take these medicines while at work. Do not drink alcohol while on these medicines. Do not operate machinery while taking these medicines. Take the steroids as prescribed. I want you to call the pain Clinic because there different treatments that they have today that can may be help you. I also want you to follow-up with a primary care doctor to have your blood pressure rechecked. Return to the emergency room for worsening pain, any arm weakness or any concerns or getting worse. The pain medicine you're taking prescribed as a narcotic. There are several important things you should know about this medicine: 1. Taking narcotics for too long can lead to physical and mental dependence. Take this medicine only if really needed and in the lowest quantity to achieve pain relief. 2. Do not drink alcohol while on this medicine. Alcohol interacts with narcotics and the combination can be dangerous. 3. Do not drive or operate machinery while on this medicine. 4. Narcotics do cause constipation, so drink plenty of fluids and daily stool softeners. Prescriptions: Oxycodone HCl 5 mg PO Q6HP PRN #20 capsule PRN Reason: Cyclobenzaprine HCl [Flexeril 10 Mg Tablet] 10 mg PO Q8HP PRN #20 tablet PRN Reason: Methylprednisolone [Medrol 4 mg Dosepack 21 Tab/Pack] 4 mg PO ASDIR PRN #21 tab.ds.pk PRN Reason: Referrals: DEE PINA MD [ACTIVE STAFF] - Follow up as needed (This is the number the pain clinic: Call for the next available appointment.) GARY PATTERSON MD [ACTIVE STAFF] - Follow up as needed (This is a number for the primary care doctor to have your blood pressure rechecked.)
== END 2018-04-03 16:07 | disposition home or self-care (01) ==
LOC: ER 13:57
DX: M62.830 Muscle spasm of back (principal); M54.10 Radiculopathy, site unspecified; M54.89 Other dorsalgia; I10 Essential (primary) hypertension; M25.511 Pain in right shoulder; M25.512 Pain in left shoulder; F17.210 Nicotine dependence, cigarettes, uncomplicated; Z98.1 Arthrodesis status
CPT/HCPCS: 99283; J3490 ×2

== ENCOUNTER 2018-06-22 00:43 | Emergency (ER) | payer MEDICAID ==
--- NOTE | 2018-06-22 01:08 | ER Document Report ---
ED Medical Screen (RME) - General Chief Complaint: Abdominal Pain Stated Complaint: ABDOMINAL PAIN Time Seen by Provider: 06/22/18 01:05 Primary Care Provider: RICARDO HOANG [Primary Care Provider] - Follow up as needed Notes: 32-year-old male coming in today chief complaint of low abdominal pain with occasional pain shooting from the right flank. Says it feels the same as when he had pain from his inguinal hernia surgery. Fevers or chills. Nausea no vomiting. I have treated and performed a rapid initial assessment of this patient. A comprehensive ED assessment and evaluation of the patient, analysis of test results and completion of medical decision making process will be conducted by additional ED providers. PHYSICAL EXAMINATION: GENERAL: Patient looks very uncomfortable LUNGS: No respiratory distress ABDOMEN: Right mid abdominal tenderness. No guarding or rebound Extremities: No cyanosis, clubbing, or edema b/l. NEUROLOGICAL: Normal speech, normal gait. PSYCH: Normal mood, normal affect. TRAVEL OUTSIDE OF THE [place] IN LAST 30 DAYS: No - Related Data Allergies/Adverse Reactions: bupropion [From Wellbutrin] Adverse Reaction (Verified 03/16/18 14:28) Past Medical History - Social History Family history: None Renal/ Medical History: Denies: Hx Peritoneal Dialysis Past Surgical History: Reports: Hx Orthopedic Surgery - partial laminectomy spine with fusion Physical Exam - Vital signs Vitals: Temp Pulse Resp BP Pulse Ox 98.1 F 76 18 148/77 H 94 06/22/18 00:45 06/22/18 00:45 06/22/18 00:45 06/22/18 00:45 06/22/18 00:45 Course - Vital Signs Vital signs: Temp Pulse Resp BP Pulse Ox 98.1 F 76 18 148/77 H 94 06/22/18 00:45 06/22/18 00:45 06/22/18 00:45 06/22/18 00:45 06/22/18 00:45 Doctor's Discharge - Discharge Referrals: RICARDO HOANG [Primary Care Provider] - Follow up as needed
[2018-06-22] MEDS ORDERED: RINGERS SOLUTION,LACTATED 1,000 ML IV ONE (01:17)
[2018-06-22 01:23] LABS: ABSOLUTE BASOPHILS # (AUTO) 0.1 10^3/uL (0.0-0.2); ABSOLUTE EOSINOPHILS # (AUTO) 0.2 10^3/uL (0.0-0.6); ABSOLUTE LYMPHOCYTES (AUTO) 3.3 10^3/uL (0.5-4.7); ABSOLUTE MONOCYTES (AUTO) 0.7 10^3/uL (0.1-1.4); BASOPHILS % (AUTO) 1.5 % (0-2); EOSINOPHILS % (AUTO) 1.9 % (0-6); HEMATOCRIT 42.7 % (37.9-51.0); HEMOGLOBIN 14.9 g/dL (13.5-17.0); LYMPHOCYTES % (AUTO) 39.6 % (13-45); MEAN CORPUSCULAR HEMOGLOBIN 30.9 pg (27.0-33.4); MEAN CORPUSCULAR VOLUME 88 fl (80-97); MONOCYTES % (AUTO) 8.6 % (3-13); PLATELET COUNT 251 10^3/uL (150-450); RED BLOOD COUNT 4.84 10^6/uL (4.35-5.55); RED CELL DISTRIBUTION WIDTH 12.8 % (11.5-14.0); SEGMENTED NEUTROPHILS % (AUTO) 48.4 % (42-78); TOTAL CELLS COUNTED % (AUTO) 100 %; WHITE BLOOD COUNT 8.2 10^3/uL (4.0-10.5)
[2018-06-22 01:46] LABS: ALANINE AMINOTRANSFERASE 47 U/L (21-72); ALBUMIN 3.9 g/dL (3.5-5.0); ALKALINE PHOSPHATASE 55 U/L (38-126); ANION GAP 9 (5-19); ASPARTATE AMINO TRANSFERASE 29 U/L (17-59); BILIRUBIN,DIRECT 0.2 mg/dL (0.0-0.4); BILIRUBIN,TOTAL 0.3 mg/dL (0.2-1.3); BLOOD UREA NITROGEN 23 mg/dL (7-20); CALCIUM 8.7 mg/dL (8.4-10.2); CARBON DIOXIDE 25 mmol/L (22-30); CHLORIDE 107 mmol/L (98-107); GLUCOSE 82 mg/dL (75-110); LIPASE 82.6 U/L (23-300); POTASSIUM 4.2 mmol/L (3.6-5.0); SODIUM 141.3 mmol/L (137-145); TOTAL PROTEIN 6.5 g/dL (6.3-8.2)
[2018-06-22 01:46] LABS: APPEARANCE,URINE SLIGHTLY-CLOUDY; BILIRUBIN,URINE NEGATIVE (NEGATIVE); COLOR,URINE YELLOW; GLUCOSE, URINE NEGATIVE (NEGATIVE); KETONES,URINE NEGATIVE (NEGATIVE); LEUKOCYTE ESTERASE,URINE NEGATIVE (NEGATIVE); NITRITE,URINE NEGATIVE (NEGATIVE); PROTEIN,URINE NEGATIVE (NEGATIVE); URINE SPECIFIC GRAVITY 1.025; UROBILINOGEN,URINE NEGATIVE mg/dL (<2.0)
--- NOTE | 2018-06-22 02:49 | RADIOLOGY REPORT (SQ) ---
CLINICAL HISTORY: RLQ Pain COMPARISON: None. TECHNIQUE: CT ABDOMEN PELVIS WITH IV CONTRAST on 06/22/2018 1:17 AM CDT This exam was performed according to our departmental dose-optimization program, which includes automated exposure control, adjustment of the mA and/or kV according to patient size and/or use of iterative reconstruction technique. FINDINGS: Lower lungs are clear. Abdomen: The liver is normal in appearance. There is no biliary dilatation. Gallbladder is decompressed. The pancreas and spleen are normal in appearance. The adrenal glands and kidneys are unremarkable. Abdominal aorta is normal in course and caliber without aneurysm. There is no free air. There is no retroperitoneal adenopathy. Pelvis: There is no bowel obstruction. Urinary bladder is unremarkable. There is no free fluid. Appendix is normal. Skeleton: There are no acute osseous findings. No suspicious bony lesions. There are postoperative changes of the lower lumbar spine . IMPRESSION: No acute inflammatory process. Normal appendix.
--- NOTE | 2018-06-22 03:04 | ER Document Report ---
ED General - General Chief Complaint: Abdominal Pain Stated Complaint: ABDOMINAL PAIN Time Seen by Provider: 06/22/18 01:05 Primary Care Provider: RICARDO HOANG [NO LOCAL MD] - Follow up as needed Notes: Patient is a 32-year-old male presents to the emergency room for right lower quadrant pain started this morning. Patient's denying any nausea, vomiting, diarrhea, dysuria, penile discharge, fever. Patient is denying any URI symptoms, chest pain, shortness of breath. States his pain is localized in his right lower quadrant. Patient states he does have a history of bilateral inguinal hernia repair and also back surgery. States "pain medication does not work on me, do not even try to give it to me." TRAVEL OUTSIDE OF THE [place] IN LAST 30 DAYS: No - Related Data Allergies/Adverse Reactions: bupropion [From Wellbutrin] Adverse Reaction (Verified 03/16/18 14:28) Past Medical History - General Information source: Patient - Social History Smoking Status: Current Every Day Smoker Frequency of alcohol use: Rare Drug Abuse: None Family History: Reviewed & Not Pertinent Patient has suicidal ideation: No Patient has homicidal ideation: No Renal/ Medical History: Denies: Hx Peritoneal Dialysis Past Surgical History: Reports: Hx Orthopedic Surgery - partial laminectomy spine with fusion Review of Systems - Review of Systems Constitutional: See HPI EENT: No symptoms reported Cardiovascular: No symptoms reported Respiratory: No symptoms reported Gastrointestinal: See HPI Genitourinary: See HPI Male Genitourinary: See HPI Musculoskeletal: No symptoms reported Skin: No symptoms reported Hematologic/Lymphatic: No symptoms reported Neurological/Psychological: No symptoms reported Physical Exam - Vital signs Vitals: Temp Pulse Resp BP Pulse Ox 98.1 F 76 18 148/77 H 94 06/22/18 00:45 06/22/18 00:45 06/22/18 00:45 06/22/18 00:45 06/22/18 00:45 - Notes Notes: GENERAL: Alert, interacts well. No acute distress. HEAD: Normocephalic, atraumatic. EYES: Pupils equal, round, and reactive to light. Extraocular movements intact. ENT: Oral mucosa moist, tongue midline. NECK: Full range of motion. Supple. Trachea midline. LUNGS: Clear to auscultation bilaterally, no wheezes, rales, or rhonchi. No respiratory distress. HEART: Regular rate and rhythm. No murmur ABDOMEN: Soft, Non-distended. Bowel sounds present in all 4 quadrants. No Kinney sign noted, positive McBurney's point tenderness noted. EXTREMITIES: Moves all 4 extremities spontaneously. No edema, normal radial and dorsalis pedis pulses bilaterally. No cyanosis. BACK: no cervical, thoracic, lumbar midline tenderness. No saddle anesthesia, n ormal distal neurovascular exam. No CVA tenderness noted bilaterally NEUROLOGICAL: Alert and oriented x3. Normal speech. cranial nerves II through XII grossly intact PSYCH: Normal affect, normal mood. SKIN: Warm, dry, normal turgor. No rashes or lesions noted. Course - Re-evaluation Re-evalutation: 06/22/18 02:50 Patient initially refused genitalia exam. States he only has right lower quadrant abdominal pain. I discussed with him the importance of doing a genitalia exam. CT imaging ordered shows no signs of appendicitis. I again discussed with patient if he continues with pain we should do a genitalia exam. 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 Patient has significant pain elicited on palpation of the right testicle. No erythema or ecchymosis noted. Circumcised penis no active discharge at the meatus. Ultrasound ordered. Patient continues to deny the offer for pain medication. 06/22/18 05:29 Abdomen/Pelvis CT 06/22/18 01:17 IMPRESSION: No acute inflammatory process. Normal appendix. Scrotum Ultrasound 06/22/18 02:59 IMPRESSION: Small bilateral hydroceles. Tiny right epididymal cyst copyright 2011 [employer]- All Rights Reserved US revels BL hydroceles. Discussed this with pt. who stated he has had them before. Discussed supportive under garments and anti-inflammatories. Patient stable for discharge. - Vital Signs Vital signs: Temp Pulse Resp BP Pulse Ox 98.1 F 76 18 148/77 H 94 06/22/18 00:45 06/22/18 00:45 06/22/18 00:45 06/22/18 00:45 06/22/18 00:45 - Laboratory Result Diagrams: 06/22/18 01:08 06/22/18 01:08 Laboratory results interpreted by me: 06/22/18 06/22/18 01:08 01:18 BUN 23 H Urine Ascorbic Acid 40 H Discharge - Discharge Clinical Impression: Hydrocele in adult Condition: Stable Disposition: HOME, SELF-CARE Instructions: Hydrocele ([facility]) Additional Instructions: As we discussed you have been seen and treated in the emergency department for hydrocele. Please read attached paperwork for continued care and treatment. Please also follow-up with [facility] or [facility] for continued care. Phone numbers will be provided in this packet. Please return to the emergency room should you have any other concerns. Forms: Return to Work Referrals: [facility] [Provider Group] - Follow up as needed [facility] [Provider Group] - Follow up as needed
--- NOTE | 2018-06-22 05:23 | RADIOLOGY REPORT (SQ) ---
EXAM DESCRIPTION: US SCROTUM COMPLETED DATE/TME: 06/22/2018 02:59 CLINICAL HISTORY: 32 years, Male, R testicle pain COMPARISON: None. TECHNIQUE: Transverse and longitudinal sonographic images of the testes LIMITATIONS: None. FINDINGS: The right testicle measures 4.0 x 2.5 x 4.3 cm, the left 4.5 x 2.5 x 3.47 m. Negative for intratesticular mass. Doppler and spectral analysis with color flow shows arterial and venous flow to both testes. Tiny 3 x 4 x 6 mm right epididymal head cyst. The epididymides are otherwise unremarkable. Small bilateral hydroceles. IMPRESSION: Small bilateral hydroceles. Tiny right epididymal cyst copyright 2010 [employer]- All Rights Reserved
[2018-06-22 06:46] VITALS: BP 135/81
== END 2018-06-22 06:46 | disposition home or self-care (01) ==
LOC: ER 00:43
DX: N43.3 Hydrocele, unspecified (principal); R10.31 Right lower quadrant pain; N50.3 Cyst of epididymis; F17.200 Nicotine dependence, unspecified, uncomplicated
CPT/HCPCS: 99284; 96360; 96361; 36415; 83690; 85025; 80053; 81001; 76870; 93976; 74177; J7120

== ENCOUNTER 2018-09-22 23:32 | Emergency (ER) | payer MEDICAID ==
--- NOTE | 2018-09-23 00:11 | RADIOLOGY REPORT (SQ) ---
CLINICAL HISTORY: bone tenderness COMPARISON: None. TECHNIQUE: XR SHOULDER 2 OR MORE VIEWS 09/22/2018 12:00 AM CDT FINDINGS: There is no fracture. Joint spaces are preserved. Soft tissues are unremarkable. IMPRESSION: No acute osseous findings.
--- NOTE | 2018-09-23 01:36 | ER Document Report ---
Addendum entered and electronically signed by YENI RICE PA-C 09/23/18 01:38: Discharge - Discharge Clinical Impression: Left shoulder pain Qualifiers: Chronicity: acute Qualified Code(s): M25.512 - Pain in left shoulder Condition: Good Disposition: HOME, SELF-CARE Additional Instructions: You were seen in the emergency department this evening for shoulder pain. It is unclear why you are having significant pain but I am referring you to orthopedics so they can definitively figure out what is going on. I have placed you in a sling for comfort and recommend that you take Tylenol 1000 mg every 6 hours and/or Motrin 600 mg every 6 hours for pain. Please return to the emergency department if your arm is completely paralyzed, you develop intractable severe midline neck pain, you pass out, you have significant weakness of your arm worse from your baseline, or you have any other concerning symptoms. Forms: Return to Work Referrals: LENARD THOMPSON DO [ACTIVE STAFF] - Follow up in 3-5 days Addendum entered and electronically signed by YENI RICE PA-C 09/23/18 01:37: Discharge - Discharge Clinical Impression: Left shoulder pain Qualifiers: Chronicity: acute Qualified Code(s): M25.512 - Pain in left shoulder Condition: Good Disposition: HOME, SELF-CARE Additional Instructions: You were seen in the emergency department this evening for shoulder pain. It is unclear why you are having significant pain but I am referring you to orthopedics so they can definitively figure out what is going on. I have placed you in a sling for comfort and recommend that you take Tylenol 1000 mg every 6 hours and/or Motrin 600 mg every 6 hours for pain. Please return to the emergency department if your arm is completely paralyzed, you develop intractable severe midline neck pain, you pass out, you have significant weakness of your arm worse from your baseline, or you have any other concerning symptoms. Referrals: LENARD THOMPSON DO [ACTIVE STAFF] - Follow up in 3-5 days Original Note: HPI - HPI Patient complains to provider of: L shoulder pain Time Seen by Provider: 09/23/18 01:06 Pain Level: 5 Context: 33-year-old male with history of a cervical spine fusion in [address] [facility] with chronic bilateral shoulder pain presents to the emergency department with chief complaint of acute left shoulder pain x1 week. 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 He said he was having right-sided pain where he felt like his "arm was shattered but it is since resolved. Patient has been seen here once before for shoulder issues and was recommended that he follow-up with the pain clinic. Patient also states that he has difficulty turning his neck to the right. The physical exam was significantly limited by patient's pain but he is able to flex his shoulders approximately 10 to 15 degrees and abduct his sh oulder approximately 30 degrees before he gets pain in the lateral deltoid. Sensation is intact to light touch. - MUSCULOSKELETAL Musculoskeletal: REPORTS: Extremity pain - left shoulder Past Medical History - Social History Smoking Status: Current Every Day Smoker Frequency of alcohol use: Rare Drug Abuse: None Family History: Reviewed & Not Pertinent Patient has suicidal ideation: No Patient has homicidal ideation: No Renal/ Medical History: Denies: Hx Peritoneal Dialysis Past Surgical History: Reports: Hx Orthopedic Surgery - partial laminectomy spine with fusion Vertical Provider Document - CONSTITUTIONAL Notes: PHYSICAL EXAMINATION: Reviewed vital signs and charting by RN GENERAL: Alert, interacts well. No acute distress. HEAD: Normocephalic, atraumatic. EYES: Pupils equal and round. Extraocular movements intact. ENT: Oral mucosa moist, tongue midline. NECK: Full range of motion. Trachea midline. LUNGS: Clear to auscultation bilaterally, no wheezes, rales, or rhonchi. No respiratory distress. HEART: Regular rate and rhythm. No murmur ABDOMEN: soft, non-tender. No distention. Bowel sounds present EXTREMITIES: Moves all 4 extremities spontaneously. No edema, No cyanosis. Left shoulder exam significantly limited to to patient's pain but he can spontaneously move it, strength is decreased secondary to pain PSYCH: Normal affect, normal mood. SKIN: Warm, dry, normal turgor. No rashes or lesions noted. - INFECTION CONTROL TRAVEL OUTSIDE OF THE [place] IN LAST 30 DAYS: No Course - Re-evaluation Re-evalutation: 09/23/18 01:33 Patient is in acute distress and is unclear if it is secondary to chronic pain in her feet has a clear acute injury. Shoulder x-ray was negative for any dislocation or fracture. I was unable to get a good solid physical exam from him because he was not cooperating secondary to pain. Sensation is intact plan is to put him in a sling and have him follow-up with orthopedics. He is stable for discharge - Vital Signs Vital signs: Temp Pulse Resp BP Pulse Ox 98.7 F 73 28 H 134/73 H 95 09/22/18 23:42 09/22/18 23:42 09/22/18 23:42 09/22/18 23:42 09/22/18 23:42 Discharge - Discharge Clinical Impression: Left shoulder pain Qualifiers: Chronicity: acute Qualified Code(s): M25.512 - Pain in left shoulder Condition: Good Disposition: HOME, SELF-CARE Additional Instructions: You were seen in the emergency department this evening for shoulder pain. It is unclear why you are having significant pain but I am referring you to [facility] so they can definitively figure out what is going on. I have placed you in a sling for comfort and recommend that you take Tylenol 1000 mg every 6 hours and/or Motrin 600 mg every 6 hours for pain. Please return to the emergency department if your arm is completely paralyzed, you develop intractable severe midline neck pain, you pass out, you have significant weakness of your arm worse from your baseline, or you have any other concerning symptoms. Referrals: LENARD THOMPSON DO [ACTIVE STAFF] - Follow up in 3-5 days
[2018-09-23 01:45] VITALS: BP 126/84
== END 2018-09-23 01:45 | disposition home or self-care (01) ==
LOC: ER 23:32
DX: M25.512 Pain in left shoulder (principal); F17.200 Nicotine dependence, unspecified, uncomplicated
CPT/HCPCS: 99283

== ENCOUNTER 2018-12-30 21:02 | Emergency (ER) | payer SELFPAY ==
--- NOTE | 2018-12-30 21:17 | ER Document Report ---
ED Medical Screen (RME) - General Chief Complaint: Hand Injury Stated Complaint: RIGHT HAND INJURY Time Seen by Provider: 12/30/18 21:14 Mode of Arrival: Ambulatory Information source: Patient Notes: 33-year-old male presents emergency department with right dorsal hand pain. Reports he fell and landed on his hand on Friday while walking his dog. Patient is right-handed. I have greeted and performed a rapid initial assessment of this patient. A comprehensive ED assessment and evaluation of the patient, analysis of test results and completion of the medical decision making process will be conducted by additional ED providers. Dictation of this chart was performed using voice recognition software; therefore, there may be some unintended grammatical errors. TRAVEL OUTSIDE OF THE [place] IN LAST 30 DAYS: No - Related Data Allergies/Adverse Reactions: bupropion [From Wellbutrin] Adverse Reaction (Verified 09/22/18 23:33) Past Medical History - Social History Frequency of alcohol use: Social Drug Abuse: None Family history: None Renal/ Medical History: Denies: Hx Peritoneal Dialysis Past Surgical History: Reports: Hx Orthopedic Surgery - partial laminectomy spine with fusion Physical Exam - Vital signs Vitals: Temp Pulse Resp BP Pulse Ox 97.2 F 96 16 145/85 H 98 12/30/18 21:08 12/30/18 21:08 12/30/18 21:08 12/30/18 21:08 12/30/18 21:08 Course - Vital Signs Vital signs: Temp Pulse Resp BP Pulse Ox 97.2 F 96 16 145/85 H 98 12/30/18 21:08 12/30/18 21:08 12/30/18 21:08 12/30/18 21:08 12/30/18 21:08
--- NOTE | 2018-12-30 21:46 | ER Document Report ---
HPI - HPI Time Seen by Provider: 12/30/18 21:14 Pain Level: 3 Notes: Patient is a 33-year-old male with no significant past medical history who presents complaining of right hand pain status post injury 4 to 5 days ago. Patient states that he tripped over his dog and hit his hand against the wall and then onto the ground. He has had pain since then that is worse with movement. He has noticed some mild swelling to the dorsal hand. He has not noticed any bruising. No other concerns or complaints. Denies any headache, fever, head injury, neck pain, URI, sore throat, chest pain, palpitations, syncope, cough, shortness of breath, wheeze, dyspnea, abdominal pain, nausea/vomiting/diarrhea, urinary retention, dysuria, hematuria, numbness/tingling, muscle paralysis, or rash. - ROS Systems Reviewed and Negative: Yes All other systems reviewed and negative - MUSCULOSKELETAL Musculoskeletal: REPORTS: Extremity pain Past Medical History - General Information source: Patient - Social History Smoking Status: Current Every Day Smoker Frequency of alcohol use: Social Drug Abuse: None Family History: Reviewed & Not Pertinent Patient has suicidal ideation: No Patient has homicidal ideation: No Renal/ Medical History: Denies: Hx Peritoneal Dialysis Past Surgical History: Reports: Hx Orthopedic Surgery - partial laminectomy spine with fusion Vertical Provider Document - CONSTITUTIONAL Agree With Documented VS: Yes Notes: PHYSICAL EXAMINATION: GENERAL: Well-appearing, well-nourished and in no acute distress. HEAD: Atraumatic, normocephalic. NECK: Normal range of motion, supple without lymphadenopathy. No midline tenderness. LUNGS: Breath sounds clear to auscultation bilaterally and equal. No wheezes rales or rhonchi. HEART: Regular rate and rhythm without murmurs, rubs, gallops. Musculoskeletal: Rt hand/wrist: + mild dorsal lateral swelling of the hand. No erythema, warmth, ecchymosis, deformity noted. N/V intact distal. FROM to passive/active at the wrist. Strength 4+/5 to digital account manager. No scaphoid tenderness. + mild tenderness dorsal hand to palp. Gamekeeper negative. Extremities: No cyanosis, clubbing, or edema b/l. Peripheral pulses 2+. Capillary refill less than 3 seconds. NEUROLOGICAL: Normal speech, normal gait. Normal sensory, motor exams otherwise unremarkable PSYCH: Normal mood, normal affect. SKIN: see above. No rash - INFECTION CONTROL TRAVEL OUTSIDE OF THE [place] IN LAST 30 DAYS: No Course - Re-evaluation Re-evalutation: 12/30/18 22:16 Patient is an afebrile, well-hydrated, 33-year-old male who presents to the ED with Rt hand pain which I suspect to be a contusion. Vitals are acceptable without any significant tachycardia, tachypnea, or hypoxia. PE is otherwise unremarkable for any neurovascular compromise, obvious tendon/ligament rupture, obvious fracture/dislocation, septic joint. X-ray was unremarkable for any acute pathology. Cock-up splint provided today. Patient declined any Tylenol or ice. Patient is nontoxic-appearing. No other labs or imaging warranted at this time based on H&P. Conservative measures otherwise for symptoms. Recheck with your PCM in 3-5 days. Consider consult orthopedics. Return to the ED with any worsening/concerning symptoms otherwise as reviewed in discharge. Patient is in agreement. - Vital Signs Vital signs: Temp Pulse Resp BP Pulse Ox 97.2 F 96 16 145/85 H 98 12/30/18 21:08 12/30/18 21:08 12/30/18 21:08 12/30/18 21:08 12/30/18 21:08 Discharge - Discharge Clinical Impression: Right hand pain Condition: Stable Disposition: HOME, SELF-CARE Additional Instructions: Rest, Ice, Compression, Elevation Tylenol/ibuprofen as needed Light stretches daily Strength exercises as able Moist heat and massage may help F/u with your PCP in 3-5 days for a recheck Consider consult(s) with Orthopedics/physical therapy for ongoing/worsening symptoms Return to the ED with any worsening symptoms and/or development of fever, headache, chest pain, palpitations, syncope, shortness of breath, trouble breathing, abdominal pain, n/v/d, muscle weakness/paralysis, numbness/tingling, swelling, redness, or other worsening symptoms that are concerning to you. Forms: Elevated Blood Pressure, Smoking Cessation Education Referrals: PROSPER ABDUL JR, DO [ACTIVE PROVISIONAL STAFF] - Follow up as needed
--- NOTE | 2018-12-30 22:14 | RADIOLOGY REPORT (SQ) ---
EXAM DESCRIPTION: XR HAND 3 OR MORE VIEWS COMPLETED DATE/TME: 12/30/2018 21:15 CLINICAL HISTORY: pain, fall COMPARISON: None FINDINGS: Three x-ray views of the right hand were submitted. There is no acute fracture or dislocation. Bone mineralization is within normal limits. There is no radiopaque foreign body material. IMPRESSION: No acute fracture or dislocation.
[2018-12-30 22:28] VITALS: BP 139/78
== END 2018-12-30 22:27 | disposition home or self-care (01) ==
LOC: ER 21:02
DX: M79.641 Pain in right hand (principal); M79.89 Other specified soft tissue disorders; W01.0XXA Fall on same level from slipping, tripping and stumbling without subsequent striking against object, initial encounter; F17.200 Nicotine dependence, unspecified, uncomplicated
CPT/HCPCS: 73130; L3908

== ENCOUNTER 2019-04-24 17:39 | Emergency (ER) | payer SELFPAY ==
[2019-04-24] MEDS ORDERED: NORMAL SALINE 1000 ML 1,000 ML IV ONE (18:16)
[2019-04-24] MEDS ORDERED: MORPHINE SULFATE 10 MG/ML INJ IV ONE (18:16)
[2019-04-24] MEDS ORDERED: ONDANSETRON HCL INJ/PF 4 MG/2 ML SDV IV ONE (18:16)
--- NOTE | 2019-04-24 18:54 | RADIOLOGY REPORT (SQ) ---
EXAM DESCRIPTION: ACUTE ABDOMEN SERIES COMPLETED DATE/TIME: 04/24/2019 5:33 pm REASON FOR STUDY: abdominal pain COMPARISON: None. NUMBER OF VIEWS: Three views. TECHNIQUE: Frontal chest, supine abdomen and upright/decubitus abdomen radiographic images acquired. LIMITATIONS: None. FINDINGS: CHEST: Lungs clear of infiltrates. FREE AIR: None. No abnormal gas collections. BOWEL GAS PATTERN: Nonobstructive pattern. No dilated loops or air fluid levels. CALCIFICATIONS: No suspicious calcifications. HARDWARE: None in the abdomen. SOFT TISSUES: No gross mass or suggestion of organomegaly. BONES: Postoperative changes of prior laminectomy and fusion of the lower lumbar spine. OTHER: No other significant finding. IMPRESSION: No acute cardiopulmonary disease. Nonobstructive bowel gas pattern. TECHNICAL DOCUMENTATION: JOB ID: [id number] [employer]- All Rights Reserved Reading location - IP/workstation name: [email or web address]
[2019-04-24 19:26] LABS: ABSOLUTE BASOPHILS # (AUTO) 0.1 10^3/uL (0.0-0.2); ABSOLUTE EOSINOPHILS # (AUTO) 0.1 10^3/uL (0.0-0.6); ABSOLUTE LYMPHOCYTES (AUTO) 2.2 10^3/uL (0.5-4.7); ABSOLUTE MONOCYTES (AUTO) 0.6 10^3/uL (0.1-1.4); ABSOLUTE NEUT (AUTO) 4.4 10^3/uL (1.7-8.2); BASOPHILS % (AUTO) 0.8 % (0-2); EOSINOPHILS % (AUTO) 1.6 % (0-6); HEMATOCRIT 45.1 % (37.9-51.0); HEMOGLOBIN 15.7 g/dL (13.5-17.0); LYMPHOCYTES % (AUTO) 29.7 % (13-45); MEAN CORPUSCULAR HEMOGLOBIN 30.8 pg (27.0-33.4); MEAN CORPUSCULAR HGB CONC 34.8 g/dL (32.0-36.0); MEAN CORPUSCULAR VOLUME 89 fl (80-97); MONOCYTES % (AUTO) 8.2 % (3-13); PLATELET COUNT 281 10^3/uL (150-450); RED BLOOD COUNT 5.09 10^6/uL (4.35-5.55); RED CELL DISTRIBUTION WIDTH 13.1 % (11.5-14.0); SEGMENTED NEUTROPHILS % (AUTO) 59.7 % (42-78); TOTAL CELLS COUNTED % (AUTO) 100 %; WHITE BLOOD COUNT 7.4 10^3/uL (4.0-10.5)
[2019-04-24 19:42] LABS: ALBUMIN 4.4 g/dL (3.5-5.0); ALKALINE PHOSPHATASE 52 U/L (38-126); ANION GAP 11 (5-19); ASPARTATE AMINO TRANSFERASE 25 U/L (17-59); BILIRUBIN,DIRECT 0.2 mg/dL (0.0-0.4); BILIRUBIN,TOTAL 0.5 mg/dL (0.2-1.3); BLOOD UREA NITROGEN 20 mg/dL (7-20); CALCIUM 9.5 mg/dL (8.4-10.2); CARBON DIOXIDE 26 mmol/L (22-30); CHLORIDE 104 mmol/L (98-107); GLUCOSE 87 mg/dL (75-110); POTASSIUM 4.3 mmol/L (3.6-5.0); TOTAL PROTEIN 7.5 g/dL (6.3-8.2)
[2019-04-24 21:03] LABS: APPEARANCE,URINE CLEAR; BILIRUBIN,URINE NEGATIVE (NEGATIVE); COLOR,URINE YELLOW; GLUCOSE, URINE NEGATIVE (NEGATIVE); KETONES,URINE NEGATIVE (NEGATIVE); LEUKOCYTE ESTERASE,URINE NEGATIVE (NEGATIVE); NITRITE,URINE NEGATIVE (NEGATIVE); PROTEIN,URINE NEGATIVE (NEGATIVE); URINE SPECIFIC GRAVITY 1.026; UROBILINOGEN,URINE NEGATIVE mg/dL (<2.0)
[2019-04-24 21:22] LABS: URINE AMPHETAMINES SCREEN NEGATIVE; URINE BARBITURATES SCREEN NEGATIVE; URINE BENZODIAZEPINES SCREEN NEGATIVE; URINE COCAINE SCREEN NEGATIVE; URINE METHADONE SCREEN NEGATIVE; URINE PHENCYCLIDINE SCREEN NEGATIVE
[2019-04-24 21:25] LABS: URINE MARIJUANA (THC) SCREEN UNCONFIRMED POSITIVE
--- NOTE | 2019-04-24 21:53 | RADIOLOGY REPORT (SQ) ---
EXAM DESCRIPTION: CT ABDOMEN PELVIS WITH IV CONTRAST COMPLETED DATE/TME: 04/24/2019 18:17 CLINICAL HISTORY: 33 years, Male, RLQ abd pain Comparison: June 22, 2018 TECHNIQUE: Contiguous axial CT images of the abdomen and pelvis were obtained. Sagittal and coronal reformats were reviewed. This exam was performed according to our departmental dose-optimization program, which includes automated exposure control, adjustment of the mA and/or kV according to patient size and/or use of iterative reconstruction technique. FINDINGS: Lung bases: Clear. Liver:Unremarkable. No focal liver lesion. Gallbladder:Unremarkable. No gallstones. No gallbladder wall thickening or pericholecystic fluid. Spleen:Unremarkable Pancreas: Pancreas is unremarkable. Adrenal glands:Within normal limits. Kidneys/ureters:Within normal limits Stomach/small bowel/colon: Stomach is unremarkable. Small bowel is unremarkable. Colon is unremarkable. Appendix: No evidence of appendicitis. Peritoneum: No free fluid. Vascular structures: within normal limits Lymph nodes: No abnormal lymph nodes. Bladder:Unremarkable. Pelvic organs: No acute abnormality Bones: No acute osseous abnormality. Surgical fusion of L5-S1. Soft tissues: Small fat containing umbilical hernia.. IMPRESSION: No acute intra-abdominal abnormality.
[2019-04-24] MEDS ORDERED: NITROGLYCERIN 2% OINTMENT 1 GM PACKET TP ONE (22:22)
[2019-04-24 22:40] VITALS: BP 121/74
--- NOTE | 2019-04-25 14:36 | ER Document Report ---
Entered by GUERLINE MURRAY SCRIBE 04/24/19 1816 Acting as scribe for:PACO HOOPER MD ED GI/ <JULIO CESAR MCDERMOTT AUGUSTINA - Last Filed: 04/24/19 22:29> - General Information source: Patient TRAVEL OUTSIDE OF THE [place] IN LAST 30 DAYS: No <PACO HOOPER - Last Filed: 04/25/19 14:36> - General Chief Complaint: Abdominal Pain Stated Complaint: ABDOMINAL PAIN/NAUSEA Time Seen by Provider: 04/24/19 17:55 Primary Care Provider: MARII SANCHEZ MD [HONORARY] - Follow up as needed Notes: This 33-year-old male patient presents to the emergency department today with complaints of lower abdominal pain with associated nausea for 1 week. Patient states that the area that seems to be the most painful is in his right lower quadrant. Patient states he has tried antacids at home with no relief. Patient states he has had soft stool intermittently as well. Patient denies any recent antibiotic usage, flank pain, sick contacts, fevers, or concern for consumption of bad food. Patient asked if he has been having any urinary symptoms including testicular pain or swelling and he states "now that you mention it, I do think my testicles are a little swollen". (PACO HOOPER) - Related Data Allergies/Adverse Reactions: bupropion [From Wellbutrin] Adverse Reaction (Verified 04/24/19 17:53) Past Medical History - General Information source: Patient - Social History Smoking Status: Former Smoker Cigarette use (# per day): No Chew tobacco use (# tins/day): No Frequency of alcohol use: Occasional Drug Abuse: None Lives with: Family Family History: Reviewed & Not Pertinent Patient has suicidal ideation: No Patient has homicidal ideation: No Renal/ Medical History: Denies: Hx Peritoneal Dialysis Past Surgical History: Reports: Hx Inguinal Hernia - Bilateral inguinal herniorrhaphy, Hx Orthopedic Surgery - partial laminectomy spine with fusion <PACO HOOPER - Last Filed: 04/25/19 14:36> Review of Systems - Review of Systems Constitutional: No symptoms reported EENT: No symptoms reported Cardiovascular: No symptoms reported Respiratory: No symptoms reported Gastrointestinal: See HPI, Abdominal pain, Diarrhea, Nausea Genitourinary: No symptoms reported Male Genitourinary: No symptoms reported Musculoskeletal: No symptoms reported Skin: No symptoms reported Hematologic/Lymphatic: No symptoms reported Neurological/Psychological: No symptoms reported -: Yes All other systems reviewed and negative <PACO HOOPER - Last Filed: 04/25/19 14:36> Physical Exam <PACO HOOPER - Last Filed: 04/25/19 14:36> - Vital signs Vitals: Temp Pulse Resp BP Pulse Ox 98.0 F 78 20 138/79 H 95 04/24/19 17:50 04/24/19 17:50 04/24/19 17:50 04/24/19 17:50 04/24/19 17:50 - Notes Notes: Physical Exam: General: Alert, appears well. HEENT: Normocephalic. Atraumatic. PERRL. Extraocular movements intact. Oropharynx clear. Neck: Supple. Non-tender. Respiratory: No respiratory distress. Clear and equal breath sounds bilaterally. Cardiovascular: Regular rate and rhythm. Abdominal: Tenderness with palpation of the lower abdomen, area of maximum tenderness is in the right lower quadrant. No distension. Normal Bowel Sounds. Male genitourinary: Performed with male hydroponics worker in attendance. Testicles are nontender and not swollen. Back: No gross abnormalities. Extremities: Moves all four extremities. Upper extremities: Normal inspection. Normal ROM. Lower extremities: Normal inspection. No edema. Normal ROM. Neurological: Normal cognition. AAOx4. Normal speech. Psychological: Normal affect. Normal Mood. Skin: Warm. Dry. Normal color. (PACO HOOPER) Course - Laboratory Result Diagrams: 04/24/19 19:00 04/24/19 19:00 <JULIO CESAR MCDERMOTT IV - Last Filed: 04/24/19 22:29> - Laboratory Result Diagrams: 04/24/19 19:00 04/24/19 19:00 - Diagnostic Test Radiology reviewed: Image reviewed, Reports reviewed <PACO HOOPER - Last Filed: 04/25/19 14:36> - Re-evaluation Re-evalutation: 04/24/19 22:[address] scan of the abdomen pelvis reviewed by this MD and discussed with the patient. All questions answered prior to discharge. (JULIO CESAR MCDERMOTT IV) 04/24/19 20:43 Pending work-up at this time including CT scan of abdomen and pelvis with oral and IV contrast. Patient has abdominal pain for several days at this point in time. Care patient been transferred over to Dr. Julio Cesar Mcdermott (PACO HOOPER) - Vital Signs Vital signs: Temp Pulse Resp BP Pulse Ox 97.5 F 70 16 121/74 97 04/24/19 22:40 04/24/19 22:40 04/24/19 22:40 04/24/19 22:40 04/24/19 22:40 - Diagnostic Test Radiology results interpreted by me: 04/25/19 14:34 Acute abdominal series plain film views x-ray shows chest clear no infiltrates abdomen no acute process no signs of inflammation or obstruction. CT scan of abdomen and pelvis with oral and IV contrast shows no acute process no inflammation no obstruction seen. (PACO HOOPER) Discharge <JULIO CESAR MCDERMOTT IV - Last Filed: 04/24/19 22:29> <PACO HOOPER - Last Filed: 04/25/19 14:36> - Discharge Clinical Impression: Acute abdominal pain Condition: Good Disposition: HOME, SELF-CARE Additional Instructions: Return to the Emergency Department without delay if any worse. HOME CARE INSTRUCTIONS & INFORMATION: Thank you for choosing us for your medical needs. We hope you're satisfied with the care you received. After you leave, you must properly care for your problem and, at the same time, observe its progress. Any condition can change. Some illnesses can change rapidly over hours or days. If your condition worsens, return to the Emergency Department or see your physician promptly. ABOUT YOUR X-RAYS AND EKG'S: If you had an EKG or X-rays taken, they have been read by the Emergency Physician. The X-rays and EKG's will also be read by a Radiologist or Career Developer within 24 hours. If discrepancies are noted, you will be notified by telephone. Please be certain the ED has a correct telephone number & address where you can be reached. Also, realize that some fractures or abnormalities do not show up on initial X-rays. If your symptoms continue, see your physician. ABOUT YOUR LABORATORY TEST: If you had laboratory tests, the results have been reviewed by the Emergency Physician. Some test results (for example cultures) may not be available for several days. You will be contacted if any test result shows you need additional treatment. Please be certain the ED has a correct telephone number and address where you can be reached. ABOUT YOUR MEDICATIONS: You will receive instructions on how to take your me dicine on the prescription label you receive. Additional information may be provided by the Pharmacy. If you have questions afterwards, call the ED for clarification or further instructions. Some prescribed medications may cause drowsiness. Do not perform tasks such as driving a car or operating machinery without consulting your Pharmacist. If you feel you need a refill of pain medication, your condition will need re-evaluation. Please do not call for a refill of any medication. ABOUT YOUR SIGNATURE: Signature of this document acknowledges to followin. Understanding that you received emergency treatment and that you may be released before al medical problems are known or treated. Please be certain the ED has a correct phone number & address where you can be reached. 2. Acknowledgement that you will arrange for follow-up care as recommended. 3. Authorization for the Emergency Physician to provide information to your follow-up Physician in order to maximize your care. AT ANY TIME, IF YOUR SYMPTOMS CHANGE SIGNIFICANTLY OR WORSEN OR YOU DEVELOP NEW SYMPTOMS, RETURN TO THE EMERGENCY DEPARTMENT IMMEDIATELY FOR RE-EVALUATION. OUR GOAL IS TO PROVIDE EXCELLENT MEDICAL CARE! WE HOPE THAT WE HAVE MET YOUR EXPECTATIONS DURING YOUR EMERGENCY DEPARTMENT VISIT AND THAT YOU FEEL YOU HAVE RECEIVED EXCELLENT CARE! Prescriptions: Ondansetron [Zofran Odt 4 mg Tablet] 1 tab PO Q8HP PRN #[id number] tab.rapdis PRN Reason: For Nausea/Vomiting Referrals: MARII SANCHEZ MD [HONORARY] - Follow up as needed I personally performed the services described in the documentation, reviewed and edited the documentation which was dictated to the scribe in my presence, and it accurately records my words and actions.
== END 2019-04-24 22:41 | disposition home or self-care (01) ==
LOC: ER 17:39
DX: R10.31 Right lower quadrant pain (principal); R10.813 Right lower quadrant abdominal tenderness; R11.0 Nausea; R19.7 Diarrhea, unspecified; Z87.891 Personal history of nicotine dependence
CPT/HCPCS: 99284; 96361; 96374; 96375; 36415; 83605; 83690; 85025; 80053; 81001; 80307; 74022; 74177; J2270; J2405; J7030